=== PATIENT | male | born 1990 | race American Indian/Alaskan Native ===

== ENCOUNTER 2020-04-22 22:07 | Emergency (ER) | payer OTHER ==
--- NOTE | 2020-04-23 02:34 | XRay Report ---
CERVICAL SPINE 3 VIEWS INDICATION / CLINICAL INFORMATION: neck pain. COMPARISON: None available. FINDINGS: No fracture, subluxation or other significant abnormality. Signer Name: Sd Clements MD Signed: 04/23/2020 2:30 AM Workstation Name: [id number]
--- NOTE | 2020-04-23 02:35 | XRay Report ---
LUMBAR SPINE 2 VIEWS INDICATION / CLINICAL INFORMATION: lower back pain. COMPARISON: None available. FINDINGS: No fracture, subluxation or other significant abnormality. Signer Name: Sd Clements MD Signed: 04/23/2020 2:30 AM Workstation Name: [id number]
[2020-04-23] MEDS ORDERED: IBUPROFEN 600 MG TAB PO ONE (03:45)
[2020-04-23] MEDS ORDERED: ACETAMINOPHEN 500 MG TAB PO ONE (03:45)
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
[2020-04-23 04:23] VITALS: BP 138/81
== END 2020-04-23 04:20 | disposition home or self-care (01) ==
LOC: ED 22:07
DX: S13.4XXA Sprain of ligaments of cervical spine, initial encounter (principal); M62.830 Muscle spasm of back; Z79.1 Long term (current) use of non-steroidal anti-inflammatories (NSAID); Z79.2 Long term (current) use of antibiotics; Z79.899 Other long term (current) drug therapy; V49.49XA Driver injured in collision with other motor vehicles in traffic accident, initial encounter; Y93.89 Activity, other specified; Y92.410 Unspecified street and highway as the place of occurrence of the external cause; Y99.8 Other external cause status
CPT/HCPCS: 72040; 72100